=== PATIENT | female | born 1990 | race Caucasian/White ===

== ENCOUNTER → 2017-03-04 09:34 | Outpatient (CLI) | payer MEDICAID ==
[2017-03-04 10:41] LABS: ALBUMIN 3.3 g/dL (3.4-5.0); BILIRUBIN - DIRECT 0.1 mg/dL (0.00-0.30); BILIRUBIN - INDIRECT 0.3 mg/dL (0.00-1.00); BILIRUBIN - TOTAL 0.4 mg/dL (0.2-1.3)
== END | disposition home or self-care (01) ==
LOC: D.US 09:30
PROVIDERS: Internal Medicine Gastroenterology
DX: K76.0 Fatty (change of) liver, not elsewhere classified (principal)

== ENCOUNTER → 2017-04-14 07:06 | Outpatient (CLI) | payer MEDICAID | END | disposition home or self-care (01) | LOC: D.NM 03-20 11:30 | DX: R10.9 Unspecified abdominal pain (principal); R11.2 Nausea with vomiting, unspecified ==

== ENCOUNTER → 2017-10-01 08:05 | Outpatient (CLI) | payer MEDICAID ==
[2017-10-01 09:09] LABS: ALBUMIN 3.2 g/dL (3.4-5.0); BILIRUBIN - DIRECT 0.08 mg/dL (0.00-0.30); BILIRUBIN - INDIRECT 0.22 mg/dL (0.00-1.00); BILIRUBIN - TOTAL 0.3 mg/dL (0.2-1.3); PROTEIN - SERUM 7.3 g/dL (6.4-8.2)
== END | disposition home or self-care (01) ==
LOC: D.US 08:05
PROVIDERS: Internal Medicine Gastroenterology
DX: K76.0 Fatty (change of) liver, not elsewhere classified (principal)

== ENCOUNTER → 2018-03-27 09:19 | Outpatient (CLI) | payer MEDICAID ==
[2018-03-27 09:52] LABS: ALBUMIN 3.4 g/dL (3.4-5.0); BILIRUBIN - DIRECT 0.13 mg/dL (0.00-0.30); BILIRUBIN - INDIRECT 0.27 mg/dL (0.00-1.00); BILIRUBIN - TOTAL 0.4 mg/dL (0.2-1.3); PROTEIN - SERUM 7.6 g/dL (6.4-8.2)
== END | disposition home or self-care (01) ==
LOC: D.LAB 09:19 → D.US 10:30
PROVIDERS: Internal Medicine Gastroenterology
DX: K76.0 Fatty (change of) liver, not elsewhere classified (principal)

== ENCOUNTER 2018-10-06 09:50 | Outpatient (CLI) | payer OTHER | END 2018-10-06 12:50 | disposition home or self-care (01) | LOC: D.OPS 09:50 | PROVIDERS: ATTEND Surgery | DX: K21.9 Gastro-esophageal reflux disease without esophagitis (principal); K44.9 Diaphragmatic hernia without obstruction or gangrene ==